=== PATIENT | female | born 1960 | race Caucasian/White ===

== ENCOUNTER 2017-04-12 10:25 | Emergency (ER) | payer OTHER ==
[2017-04-12 10:35] VITALS: O2SAT 95
--- NOTE | 2017-04-12 11:46 | EDPHY ---
H & P Stated Complaint: fell running lac to r knee HPI/ROS: CHIEF COMPLAINT: Fall, right knee pain laceration HISTORY OF PRESENT ILLNESS: Patient was running in a triathlon today when she tripped and fell on a gravel path. She struck her right knee and sustained a laceration. She said she continued to run for the next 2 miles. It was moderately painful time. The pain has improved significantly. She has some superficial abrasions on the palms of both hands and moderate laceration of the right anterior knee. No numbness or tingling distally. No bony tenderness of the right leg at any point. No head or neck injury. No chest or back pain. No abdominal pain. No other associated complaints or modifying factors. Tetanus is up-to-date less than 10 years ago. PRIOR ORTHO INJURIES: Multiple ESTABLISHED ORTHOPEDIST: None REVIEW OF SYSTEMS: Ten systems reviewed and are negative unless otherwise noted in the HPI EXAMINATION General Appearance: Alert, no distress Cardiovascular: Pulses normal throughout. Symmetric DP pulses are 2+. Symmetric PT pulses 2+ Brisk cap refill Neurological: A&O, sensory symmetric, strength symmetric Skin: Warm and dry. Superficial abrasions to the thenar eminence of both hands. Superficial abrasion to the right hypo thenar eminence. There is a laceration of the right anterior knee that is jagged with maceration of the wound borders. Superficial foreign bodies noted. Neurovascular intact distal to the wound. Extremities: Nontender, no pedal edema Psychiatric: Mood and affect normal DIFFERENTIAL DIAGNOSES: Including but not limited to laceration, abrasion, laceration with foreign body , laceration complication, patella fracture, knee sprain, contusion, hematoma MDM: 11:20 a.m. Mechanical fall running with laceration of the right knee. X-ray has been ordered to rule out fracture and significant foreign body. She is in no acute distress. Neurovascular intact distally. 12:15 p.m. Fall with complex laceration of the right knee due to maceration. Difficult to fully approximate the wound borders due to the abrasion level of the tissue. I have close the wound as best possible. Recommend follow up with wound care for definitive care as well as primary care physician. Return here for signs of infection as discussed. Daily bacitracin and cover the wound. Superficial abrasions to the hands and elbow will also be treated with bacitracin and wound dressings. Return here for worsening symptoms or signs of infection as discussed. PROCEDURE: Laceration repair Consent: Verbal Location: Right knee Length of repair: Complexity: Moderate complexity due to maceration Layer involvement: Anesthesia: Local anesthesia, 1% lidocaine with epinephrine, 5 mL Irrigation: Extensive Debridement: Minimal Procedure description: Following good anesthesia, the wound was copiously irrigated. Wound bed was explored and there is no foreign body noted. Minimal excisional debridement. Wound borders were approximated well with good hemostasis. Tolerated well without complication. Suture/Staple material: 4-0 Prolene, 5 simple interrupted sutures Wound care: Routine as discussed Suture/Staple removal:7-10 Days ED Precautions: Worsening pain. Erythema, edema, cyanosis, pallor, paresthesia or anesthesia. SUPERVISION: This patient was independently evaluated without direct examination by the attending physician. Case was discussed with attending physician. Source: Patient, Family Exam Limitations: No limitations - Personal History Current Tetanus/Diphtheria Vaccine: Yes - Medical/Surgical History Hx Asthma: No Hx Chronic Respiratory Disease: No Hx Diabetes: No Hx Cardiac Disease: No Hx Renal Disease: No Hx Cirrhosis: No Hx Alcoholism: No Hx HIV/AIDS: No Hx Splenectomy or Spleen Trauma: No Other PMH: denies - Social History Smoking Status: Never smoked Constitutional: Initial Vital Signs Temperature (C) 97.5 F 04/12/17 10:33 Heart Rate 61 04/12/17 10:33 Respiratory Rate 17 04/12/17 10:33 Blood Pressure 118/69 04/12/17 10:33 O2 Sat (%) 95 04/12/17 10:33 O2 Delivery Mode Room Air Allergies/Adverse Reactions: No Known Allergies Allergy (Unverified 04/12/17 10:33) Home Medications: Medication Instructions Recorded NK [No Known Home Meds] 04/12/17 Medical Decision Making - Diagnostics Imaging Results: Imaging Impressions Knee X-Ray 04/12/17 11:19 Impression: 1. Soft tissue injury with superficially-situated radiopaque foreign bodies. 2. No acute osseous abnormality. 3. Mild degenerative changes. Departure - Departure Disposition: Home, Routine, Self-Care Clinical Impression: Laceration of knee, left Qualifiers: Encounter type: initial encounter Qualified Code(s): S81.012A - Laceration without foreign body, left knee, initial encounter Condition: Good Instructions: Care For Your Stitches (ED) Additional Instructions: 1. Daily wound care as discussed 2. Follow up with primary care physician for further care number 3. Follow up with wound Care for care at their discretion 4. Return here for signs of infection as discussed if they develop Referrals: Milind Flores MD [Primary Care Provider] - As per Instructions [facility] [Clinic] - As per Instructions
[2017-04-12 12:17] VITALS: BP 116/64; PULSE 58; RESP 16; TEMP 97.9
== END 2017-04-12 12:26 | disposition home or self-care (01) ==
PROC: 0HQKXZZ Repair Right Lower Leg Skin, External Approach (ICD-10-PCS; principal; 2017-04-12)
DX: S81.011A Laceration without foreign body, right knee, initial encounter (principal); W01.198A Fall on same level from slipping, tripping and stumbling with subsequent striking against other object, initial encounter; Y99.8 Other external cause status; Y93.02 Activity, running

== ENCOUNTER 2017-09-22 07:54 | Day surgery (SDC) | payer OTHER ==
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
[2017-09-22] MEDS ORDERED: LR 1,000 ML IV ONE (08:10)
[2017-09-22 08:35] VITALS: PULSE 58
[2017-09-22] MEDS ORDERED: BUPIVACAINE 0.25% 30 ML SDV ONE (09:10)
[2017-09-22] MEDS ORDERED: ceFAZolin 1 GM/5 ML SYR ONE (09:11)
[2017-09-22] MEDS ORDERED: NALOXONE HCL 0.4 MG/ML INJ IVP PRN ×2 (09:12→10:45)
[2017-09-22] MEDS ORDERED: MIDAZOLAM 2 MG/2 ML VIAL IVP ONE (09:12)
[2017-09-22] MEDS ORDERED: LIDOCAINE 1% 300 MG/30 ML SDV ONE (09:12)
[2017-09-22] MEDS ORDERED: MIDAZOLAM 2 MG/2 ML VIAL ONE (09:14)
--- NOTE | 2017-09-22 09:16 | PDANEPAE ---
ANE History of Present Illness L foot bunion resection ANE Past Medical History - Cardiovascular History Hx Hypertension: No Hx Arrhythmias: No Hx Chest Pain: No Hx Coronary Artery / Peripheral Vascular Disease: No Hx CHF / Valvular Disease: No Hx Palpitations: No - Pulmonary History Hx COPD: No Hx Asthma/Reactive Airway Disease: No Hx Recent Upper Respiratory Infection: No Hx Oxygen in Use at Home: No Hx Sleep Apnea: No Sleep Apnea Screening Result - Last Documented: Negative - Neurologic History Hx Cerebrovascular Accident: No Hx Seizures: No Hx Dementia: No - Endocrine History Hx Diabetes: No - Renal History Hx Renal Disorders: No - Liver History Hx Hepatic Disorders: No - Neurological & Psychiatric Hx Hx Neurological and Psychiatric Disorders: No - Cancer History Hx Cancer: No - Congenital Disorder History Hx Congenital Disorders: No - GI History Hx Gastrointestinal Disorders: No - Other Health History Other Health History: none - Chronic Pain History Chronic Pain: No - Surgical History Prior Surgeries: none ANE Review of Systems Review of Systems: - Exercise capacity METS (RN): 5 METS ANE Patient History - Allergies Allergies/Adverse Reactions: No Known Allergies Allergy (Verified 08/24/17 11:03) - Home Medications Home medications: home medication list seen and reviewed Home Medications: NK [No Known Home Meds] 04/12/17 [Last Taken Unknown] - NPO status NPO Status: no food or drink >8 hours NPO Since - Liquids (Date): 09/21/17 NPO Since - Liquids (Time): 23:00 NPO Since - Solids (Date): 09/21/17 NPO Since - Solids (Time): 22:00 - Anes Hx Anes Hx: no prior problems - Smoking Hx Smoking Status: Never smoked - Alcohol Use Alcohol Use: Rarely - Family Anes Hx Family Anes Hx: none Family Hx Anesthesia Complications: none ANE Labs/Vital Signs - Vital Signs Blood Pressure: 103/66 Heart Rate: 58 Respiratory Rate: 17 O2 Sat (%): 92 Height: 170.18 cm Weight: 58.967 kg ANE Physical Exam - Airway Neck exam: FROM Mallampati Score: Class 1 Mouth exam: normal dental/mouth exam - Pulmonary Pulmonary: no respiratory distress - Cardiovascular Cardiovascular: regular rate and rhythym - ASA Status ASA Status: I ANE Anesthesia Plan Anesthesia Plan: GA with mask Total IV Anesthesia: Yes
[2017-09-22] MEDS ORDERED: PROPOFOL/EMULSION 500 MG/50 ML BOTTLE IV ONE (09:24)
[2017-09-22] MEDS ORDERED: fentaNYL 100 MCG/2 ML INJ ONE (09:24)
[2017-09-22] MEDS ORDERED: LIDOCAINE 2% JELLY 5 ML TUBE ONE (09:33)
[2017-09-22] MEDS ORDERED: DEXAMETHASONE 4 MG/ML VIAL ONE (09:34)
[2017-09-22] MEDS ORDERED: ONDANSETRON 4 MG/2 ML VIAL ONE (09:34)
[2017-09-22] MEDS ORDERED: ceFAZolin 1 GM VIAL ONE (09:36)
[2017-09-22] MEDS ORDERED: PROPOFOL 200 MG/20 ML VIAL ONE (10:31)
[2017-09-22] MEDS ORDERED: MEPERIDINE 25 MG/ML SYR IVP PRN (10:45)
[2017-09-22] MEDS ORDERED: HYDROCODONE/APAP 5/325 TAB PO PRN (10:45)
[2017-09-22] MEDS ORDERED: ACETAMINOPHEN 500 MG TAB PO PRN (10:45)
[2017-09-22] MEDS ORDERED: LABETALOL HCL 5 MG/ML 20 ML MDV IVP PRN (10:45)
[2017-09-22] MEDS ORDERED: OXYCODONE/APAP 5/325 TAB PO PRN (10:45)
[2017-09-22] MEDS ORDERED: ONDANSETRON 4 MG/2 ML VIAL IVP PRN (10:45)
[2017-09-22] MEDS ORDERED: ALBUTEROL 3 ML DEYVIAL IH PRN (10:45)
[2017-09-22] MEDS ORDERED: fentaNYL 100 MCG/2 ML INJ IVP PRN (10:45)
[2017-09-22] MEDS ORDERED: METOCLOPRAMIDE 10 MG/2 ML VIAL IVP PRN (10:45)
[2017-09-22] MEDS ORDERED: LR 500 ML IV PRN (10:45)
[2017-09-22] MEDS ORDERED: PHENYLEPHRINE HCL 100 MCG/ML SYR IVP PRN (10:45)
[2017-09-22] MEDS ORDERED: DEXAMETHASONE 4 MG/ML VIAL IVP PRN (10:45)
[2017-09-22] MEDS ORDERED: PROMETHAZINE HCL 25 MG/ML INJ IVP PRN (10:45)
--- NOTE | 2017-09-22 11:12 | POSTANESTH ---
Post Anesthetic Evaluation Cardiovascular Status: Normal, Stable Respiratory Status: Normal, Stable Level of Consciousness/Mental Status: Can Participate in Eval, Mildly Sleepy, Arousable Pain Control: Adequate, Prn Tx Ordered Nausea/Vomiting Control: Adequate, Prn Tx Ordered Complications Possibly Related to Anesthesia: None Noted
[2017-09-22 11:57] VITALS: TEMP 97.3
[2017-09-22 13:11] VITALS: BP 113/88
[2017-09-22 13:52] VITALS: O2SAT 92
[2017-09-22 13:58] VITALS: RESP 16
--- NOTE | 2017-09-23 13:29 | GOP ---
[f rep st] OPERATIVE REPORT DATE OF OPERATION: SURGEON: Dax Polanco DPM ANESTHESIA: IV general plus a local infiltration of 5 cc of 1% lidocaine plain and 5 cc of 0.25% Mar rosie plain. ANESTHESIOLOGIST: Dakota Martinez MD PREOPERATIVE DIAGNOSIS: Hallux valgus deformity, left foot. POSTOPERATIVE DIAGNOSIS: Hallux valgus deformity, left foot. PROCEDURE PERFORMED: 1. Modified Lees bunionectomy with osteotomy screw fixation. 2. Von osteotomy with screw fixation. FINDINGS: SPECIMENS: There were no specimens sent to pathology. ESTIMATED BLOOD LOSS: Less than 10 cc. DESCRIPTION OF PROCEDURE: The patient was taken to the operating room, placed in a supine position. After the IV general and local Hutton-type block with said anesthesia to the left great toe joint, the left lower extremity was then elevated, prepped, and draped in the usual sterile OR fashion achieving a sterile field about the entire distal aspect of the extremity. The foot was elevated, exsanguinate d. Tourniquet was inflated to 225 mmHg. Total tourniquet time was approximately 1 hour and 10 minutes . At this point, attention was directed to the medial aspect of the left great toe joint where approxim ately a 3- to 4-inch linear incision was made. Dissection was carried down to the level of the joint capsule, taking care to preserve the neurovascular status to the area. The superficial vessels were c lamped and bovied as necessary. The 1st intermetatarsal space was entered via sharp and blunt dissect ion. The adductor tendon was identified, released from its attachments to the base of the proximal ph alanx. At this point, the toe could be freely moved into a corrected position by hand. The periosteum on the base of the proximal phalanx were reflected medially and laterally. There was a large bony em inence noted on the medial aspect of the 1st metatarsal head. This was removed utilizing a bone saw. A 0.035 K-wire was then placed through the metaphysis of the metatarsal, orienting the K-wire such th at it would slightly plantar flex the metatarsal. The V or chevron-type osteotomy with an elongated d orsal wing was carried out. The metatarsal head was shifted laterally and slightly plantarly impacted upon itself and held fast with the same 0.035 K-wire as temporary fixation. Utilizing AO technique, 2 parallel ostium and screws were placed through the long dorsal wing; one a 2.4 mm fully threaded sc rew in a lag technique, it was retrograded back into the metatarsal through the long dorsal wing and a secondary 2.0 mm screw was placed and again retrograded back into the metatarsal. Excellent alissa felicita was noted at the osteotomy site, and the bone was held fast. Redundant bone was removed medially and rasped smooth utilizing a rotary bur and the K-wire was removed from the operative site. At this point, the great toe was taken through range of motion. It was deemed necessary to do a secondary pr ocedure as the great toe was still pushing on the second toe. Attention was directed to the base of t he proximal phalanx where an oblique wedge osteotomy was carried out with the apex of the oblique wed ge osteotomy at the proximal-lateral edge of the proximal phalanx of the great toe. This wedge of bon e was removed from the operative site. The great toe was shifted away from the 2nd toe and held fast temporarily with a fracture reduction clamp. Again, utilizing AO technique, 2 parallel 2.4 mm OsteoMe d screws were placed perpendicular to the osteotomy site with good compression noted intraoperatively . The great toe was then taken through a range of motion, deemed to be anatomically aligned. There wa s a large area on the metatarsal head that was devoid of cartilage, and this was drilled out utilizin g the 0.035 K-wire to promote fibrocartilage formation. The area was flushed copiously with dilute an tibiotic solution. Redundant capsule was capsulotomized medially, and then the capsule was reapproxim ated utilizing 3-0 Vicryl in a simple interrupted suture. Periosteal closure was carried out via 4-0 Vicryl in a horizontal mattress suture and subcu closure was carried out via 4-0 Vicryl in a horizont al mattress suture. Skin closure was carried out via 4-0 Prolene in a running subcuticular stitch. Th e incision was reinforced with Mastisol and Steri-Strips. Sterile dressing was applied. The tournique t was released. All digits returned to uniform pink color with normal capillary fill less than 5 seco nds to digits x10. The patient went into recovery in a satisfactory state with all vital signs stable. Her prognosis is very good for rapid recovery, and she will be followed up x2 days postop at [facility]. She was given my cell phone number for 24 hour calls should she have any problems or question s. COMPLICATIONS: None. DRAINS: No drains were placed in the operative site. /[id number]/MODL
== END 2017-09-22 13:38 | disposition home or self-care (01) ==
LOC: FSGY 07:54
PROVIDERS: ATTEND Podiatrist
PROC: 0QBP0ZZ Excision of Left Metatarsal, Open Approach (ICD-10-PCS; principal; 2017-09-22 09:15)
PROC: 0QSP0ZZ Reposition Left Metatarsal, Open Approach (ICD-10-PCS; principal; 2017-09-22 09:15)
PROC: 0Q8P0ZZ Division of Left Metatarsal, Open Approach (ICD-10-PCS; principal; 2017-09-22 09:15)
DX: M20.12 Hallux valgus (acquired), left foot (principal)
CPT/HCPCS: C1713; J0171; J0690; J1100; J2250; J2405; J2704; J3010

== ENCOUNTER → 2018-11-17 | Outpatient (CLI) | payer OTHER | LOC: FIMAGING 12:24 | PROVIDERS: ATTEND Obstetrics & Gynecology Gynecology | DX: Z12.31 Encounter for screening mammogram for malignant neoplasm of breast (principal) ==

== ENCOUNTER → 2018-12-20 | Outpatient (CLI) | payer OTHER | LOC: BMCIMAGING 12:19 | PROVIDERS: ATTEND Family Medicine | DX: S62.623A Displaced fracture of middle phalanx of left middle finger, initial encounter for closed fracture (principal); W23.1XXA Caught, crushed, jammed, or pinched between stationary objects, initial encounter; Y93.73 Activity, racquet and hand sports ==

== ENCOUNTER → 2019-01-18 | Outpatient (CLI) | payer OTHER | LOC: BMCIMAGING 09:28 | PROVIDERS: ATTEND Physician Assistant | DX: S62.653D Nondisplaced fracture of middle phalanx of left middle finger, subsequent encounter for fracture with routine healing (principal) ==

== ENCOUNTER → 2019-02-09 | Outpatient (CLI) | payer OTHER | LOC: FIMAGING 13:39 | PROVIDERS: ATTEND Obstetrics & Gynecology Gynecology | DX: Z00.00 Encounter for general adult medical examination without abnormal findings (principal); M85.89 Other specified disorders of bone density and structure, multiple sites; Z78.0 Asymptomatic menopausal state ==